=== PATIENT | female | born 1980 | race Caucasian/White ===

== ENCOUNTER 2017-11-30 01:05 | Emergency (ER) | payer BC, OTHER ==
[~2017-11-30] VITALS: Ht 152.4 cm; Wt 77.1 kg
[2017-11-30] MEDS ORDERED: HYDROcodone-ACET 7.5/325MG TAB PO ONE (03:30)
[2017-11-30 03:50] VITALS: BP 130/66
== END 2017-11-30 05:08 | disposition home or self-care (01) ==
LOC: EDBD 01:05 → ER 01:10
DX: S13.9XXA Sprain of joints and ligaments of unspecified parts of neck, initial encounter (principal); S20.219A Contusion of unspecified front wall of thorax, initial encounter; S09.90XA Unspecified injury of head, initial encounter; F17.210 Nicotine dependence, cigarettes, uncomplicated; Z88.6 Allergy status to analgesic agent; V43.52XA Car driver injured in collision with other type car in traffic accident, initial encounter; Y93.89 Activity, other specified; Y99.8 Other external cause status; Y92.410 Unspecified street and highway as the place of occurrence of the external cause
CPT/HCPCS: 70450; 71045; 72125; 73000; 81025